=== PATIENT | male | born 1985 | race Caucasian/White ===

== ENCOUNTER 2017-10-14 01:56 | Observation (INO) ==
[2017-10-14] MEDS ORDERED: MORPHINE SULFATE 4 MG/1 ML IVP ONE (02:11)
[2017-10-14] MEDS ORDERED: NITROGLYCERIN 0.4 MG SL TAB (BOTTLE OF 3) SL ONE (02:11)
[2017-10-14] MEDS ORDERED: Sodium Chloride 0.9% 1,000 ML PRIMARY IV ONE ×3 (02:11→09:28)
[2017-10-14] MEDS ORDERED: ONDANSETRON 4 MG/2 ML VIAL IVP ONE (02:11)
[2017-10-14] MEDS ORDERED: ACETAMINOPHEN 500 MG TABLET PO ONE (02:11)
--- NOTE | 2017-10-14 02:13 | PDOC ---
Chest Pain HPI - General Chief Complaint: Chest Pain Stated Complaint: CHEST PAIN Date Seen by Provider: 10/14/17 Time Seen by Provider: 01:55 Source: Patient Exam Limitations: POSITIVE: No limitations Treatment Prior to Arrival: REPORTS: Aspirin Nurse's Notes Reviewed & Considered: Yes - History of Present Illness Initial Comments: This is a well-developed, well-nourished, very pleasant, 32-year-old male complaining of chest pain. Patient with chest pain that is substernal on the left side of his chest, with radiation into his left arm and shoulder. He describes the pain as sharp, deep, and with shortness of breath. Onset of pain was sudden at approximately 2100 hrs. tonight. At the time his pain had started , he was sitting on the edge of the bed, watching television. He had been watching television for approximately 3 hours when the symptoms started. Pain started as a mild annoyance and progressed into pain. 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 Presently has a headache, denies sore throat, he does have chest pain and shortness of breath, he has had chills but no sweats, no fever. He denies any nausea vomiting or diarrhea, but feels that he needs to have a bowel movement. He denies any hematuria or dysuria, no myalgias or arthralgias, no rashes. His gave him a 325 mg aspirin prior to coming to the emergency room. Patient denies tobacco, no drugs. He did have approximately 6 beers tonight. Body Location Affected: REPORTS: Head, Chest Timing: REPORTS: Abrupt Duration: 4-6 hours Severity: Moderate Context: REPORTS: Rest Quality: REPORTS: "Pain", Sharpness Radiation: REPORTS: Shoulder (L), Arm (L) Associated Symptoms: REPORTS: Shortness of Breath Modifying Factors: improves with: None Reported Similar Symptoms Previously: Yes Recently seen/treated/hospitalized: No Any Prior Injuries Related to Current Complaint?: No - Patient Home Medications Home Medications: Home Medications Albuterol Sulfate [Ventolin Hfa] 1 - 2 puff INH Q4-6H #1 inhaler 08/19/14 Bmx 2 tsp PO Q6-8H PRN #180 11/15/15 - Patient Allergies Allergies/Adverse Reactions: Allergies 3 Allergy/AdvReac Type Severity Reaction Status Date / Time No Known Allergies Allergy Unverified 08/16/14 10:31 Past Medical History - heen HEENT History: Denies History Cardiovascular History: Previous MT Additional Cardiovasular History: MT X 2 Respiratory History: Denies History Gastrointestinal History: Denies History Genitourinary History: Denies History Endocrine History: Denies History Musculoskeletal History: Back Injury, Joint Pain Additional Musculoskeletal History: Right fifth digit implant and surgical repair. Neurological History: Denies History Additional Neurological History: Hx of CVA x 1 Blood Disorders: Denies History Psychiatric History: Denies History History of Sexually Transmitted Diseases: No Cancer History: Denies History History of MDRO: No History of Other Communicable Diseases: No Alcohol Use: Occasionally In the Past 12 Months, Have Used or Abuse Any Substance: None Anesthesia Reactions: No Significant Family History: No pertinent family hx ROS - Limitations ROS Limitations: No Limitations Constitution: REPORTS: Chills Cardiovascular: REPORTS: Chest Pain Respiratory: REPORTS: Shortness Of Breath Neurological: REPORTS: Headache Gastrointestinal: REPORTS: Denies GI Symptoms Endocrine: REPORTS: Denies Symptoms Musculoskeletal: REPORTS: Denies MS Symptoms Genitourinary: REPORTS: Denies Symptoms Eyes: REPORTS: Denies Symptoms ENT: REPORTS: Denies Symptoms Skin: REPORTS: Denies Skin Symptoms Lympathic: REPORTS: Denies Lympathic Symptoms Immunologic: POSITIVE: Denies Symptoms Psychiatric: POSITIVE: Denies Psych Symptoms Chest Pain PE - General Appearance General Appearance: REPORTS: Alert, Cooperative, No Acute Distress, No Evidence of Trauma - HEENT HEENT: POSITIVE: Head Inspection Nml, Eyes Inspection Nml, Ears Inspection Nml, Nose Inspection Nml, Oral/Dental Inspect. Nml, Pharynx Inspect. Nml, PERRL, EOMI - Neck Neck: REPORTS: Normal Inspection - Respiratory Respiratory: REPORTS: No Respiratory Distress, Breath Sounds Normal, Chest Non- Tender - Cardiovascular Cardiovascular: REPORTS: Regular Rate and Rhythm, Heart Sounds Normal, Strong Pulses, No Murmur, No Gallop, No Friction Rub, No JVD Peripheral Pulses: Radial (R): 4+ - Abdomen Abdomen: Soft: (All Quadrants), Normal Bowel Sounds: (All Quadrants), Denies Tenderness: (All Quadrants), No Splenomegaly: (All Quadrants), No Hepatomegaly: (All Quadrants), No Guarding: (All Quadrants), No Rebound: (All Quadrants), No Palpable Pulse: (All Quadrants), No Palpabale Mass: (All Quadrants), No Distention: (All Quadrants), No Rigidity: (All Quadrants) - Extremities Extremity: Non-Tender: (All Extremities), Normal ROM: (All Extremities), Normal Inspection: (All Extremities) - Neurological / Psychological Neurological: POSITIVE: Affect Apporpriate, Oriented X3, Motor Normal, Sensation Normal Chest Pain Progress - Results Reviewed by me Xrays/CTs/US Reviewed by me: Yes Discussed with Radiologist: Yes Lab Results Reviewed by Me: Yes CBC and BMP: 10/14/17 02:00 10/14/17 02:00 EKG Interpreted/Reviewed By Me:: Yes (sinus rhythm with no ST elevation appreciated.) EKG Interpretation:: POSITIVE: Normal Sinus Rhythm, Normal ST/T - Patient's Progress Pain Medication Addressed: POSITIVE: Yes Status: POSITIVE: Improved MDM / ED Course: Patient was evaluated, an IV started, blood drawn and sent to lab for studies, EKG and radiographic examinations were obtained. Findings: Troponin and CK-MB are within normal limits. D-dimer is normal. EKG , as interpreted by me, shows normal sinus rhythm with no ST elevations present. Chest x-ray, as interpreted by me, shows no acute cardiopulmonary decompensation. CBC and CMP are unremarkable. Assessment: Chest pain with normal enzymes and EKG. In the setting of his past medical history angina is a likely explanation. Plan: Admission for rule out myocardial infarction. Patient received sublingual nitroglycerin which caused his chest pain to resolve. Quality Measure Initiative: CP/AMI: POSITIVE: EKG, ASA Quality Measure Initiative: CAP: POSITIVE: CXR or CT - Consult Consult (If Yes, Name of Consulting MD & Time Called): Yes (Dr. Fortune) Consulting MD will see pt:: POSITIVE: [facility] [place] Admit Counseled: POSITIVE: Patient, Family, RE: Lab Results, RE: Radiology Results, RE : DX, RE: Need for F/U Patient Care Time - Estimated PCT Patient Care Time (In Minutes): 45 Vital Signs - Recent Vital Signs Vital Signs: Vital Signs (Last 8 hours) Temp Pulse Pulse Pulse Pulse Resp BP 10/14/17 03:19 84 16 10/14/17 03:18 72 21 10/14/17 03:17 75 9 L 10/14/17 03:16 76 10 L 10/14/17 03:15 73 21 10/14/17 03:14 74 14 10/14/17 03:13 77 11 L 10/14/17 03:12 79 15 10/14/17 03:11 78 10 L 10/14/17 03:10 76 20 10/14/17 03:09 83 32 H 10/14/17 03:08 82 15 10/14/17 03:07 75 9 L 10/14/17 03:06 77 4 L 10/14/17 03:05 80 5 L 10/14/17 03:04 78 5 L 10/14/17 03:03 80 16 104/73 10/14/17 03:02 83 12 104/73 10/14/17 03:01 86 11 L 104/73 10/14/17 03:00 90 18 10/14/17 02:59 10 L 10/14/17 02:58 77 9 L 10/14/17 02:57 78 9 L 10/14/17 02:56 86 14 10/14/17 02:55 82 19 10/14/17 02:54 82 8 L 10/14/17 02:53 79 20 10/14/17 02:52 77 17 10/14/17 02:51 75 13 10/14/17 02:50 80 21 10/14/17 02:49 79 30 H 10/14/17 02:48 73 5 L 10/14/17 02:47 71 10 L 10/14/17 02:46 76 10 L 10/14/17 02:45 78 10 L 10/14/17 02:44 76 6 L 10/14/17 02:43 78 10 L 10/14/17 02:42 70 12 10/14/17 02:41 78 18 10/14/17 02:40 74 8 L 10/14/17 02:35 79 15 10/14/17 02:34 75 7 L 10/14/17 02:33 76 9 L 109/74 10/14/17 02:32 78 7 L 109/74 10/14/17 02:31 76 10 L 10/14/17 02:30 81 9 L 10/14/17 02:29 78 10 L 10/14/17 02:28 81 22 10/14/17 02:27 81 8 L 10/14/17 02:26 81 18 04/20/18 02:25 81 18 10/14/17 02:24 79 12 10/14/17 02:23 79 8 L 106/79 10/14/17 02:22 74 8 L 106/79 10/14/17 02:21 79 9 L 10/14/17 02:20 77 23 10/14/17 02:19 74 5 L 10/14/17 02:18 78 14 10/14/17 02:17 82 11 L 10/14/17 02:16 18 114/69 10/14/17 02:15 77 13 114/69 10/14/17 02:14 79 11 L 10/14/17 02:13 82 15 10/14/17 02:12 83 10 L 10/14/17 02:11 79 8 L 10/14/17 02:10 80 7 L 10/14/17 02:09 82 17 10/14/17 02:08 83 8 L 10/14/17 02:07 82 22 122/84 10/14/17 02:06 84 8 L 122/84 10/14/17 02:05 85 12 10/14/17 02:00 97.1 F 83 16 10/14/17 01:56 97.1 F 85 83 83 16 BP BP Pulse Ox 10/14/17 03:19 94 10/14/17 03:18 96 10/14/17 03:17 97 10/14/17 03:16 97 10/14/17 03:15 96 10/14/17 03:14 97 10/14/17 03:13 96 10/14/17 03:12 97 10/14/17 03:11 98 10/14/17 03:10 97 10/14/17 03:09 97 10/14/17 03:08 97 10/14/17 03:07 96 10/14/17 03:06 96 10/14/17 03:05 94 10/14/17 03:04 97 10/14/17 03:03 96 10/14/17 03:02 98 10/14/17 03:01 97 10/14/17 03:00 96 10/14/17 02:59 10/14/17 02:58 97 10/14/17 02:57 98 10/14/17 02:56 97 10/14/17 02:55 97 10/14/17 02:54 98 10/14/17 02:53 98 10/14/17 02:52 98 10/14/17 02:51 98 10/14/17 02:50 97 10/14/17 02:49 97 10/14/17 02:48 96 10/14/17 02:47 97 10/14/17 02:46 96 10/14/17 02:45 97 10/14/17 02:44 95 10/14/17 02:43 96 10/14/17 02:42 98 10/14/17 02:41 97 10/14/17 02:40 98 10/14/17 02:35 96 10/14/17 02:34 96 10/14/17 02:33 96 10/14/17 02:32 96 10/14/17 02:31 94 10/14/17 02:30 96 10/14/17 02:29 96 10/14/17 02:28 97 10/14/17 02:27 96 10/14/17 02:26 96 10/14/17 02:25 97 10/14/17 02:24 96 10/14/17 02:23 95 10/14/17 02:22 94 10/14/17 02:21 94 10/14/17 02:20 94 10/14/17 02:19 94 10/14/17 02:18 95 10/14/17 02:17 96 10/14/17 02:16 10/14/17 02:15 95 10/14/17 02:14 94 10/14/17 02:13 97 10/14/17 02:12 97 10/14/17 02:11 97 10/14/17 02:10 97 10/14/17 02:09 96 10/14/17 02:08 96 10/14/17 02:07 95 10/14/17 02:06 92 10/14/17 02:05 95 10/14/17 02:00 122/103 96 10/14/17 01:56 122/103 96 - VS Reviewed Vital Signs Reviewed: Yes Discharge Clinical Impression: Chest pain Discharge Disposition: Admit to Observation Condition: Stable Date Decision to Admit to Inpatient: 10/14/17 Time Decision to Admit to Inpatient: 03:00
[2017-10-14 02:15] LABS: BASOPHILS # (AUTO) 0.02 10*3/UL; BASOPHILS % (AUTO) 0.3 % (0-1); BLOOD UREA NITROGEN 9 mg/dL (7-22); BUN/CREATININE RATIO 8.18 (6-20); EOSINOPHILS # (AUTO) 0.11 10*3/UL; EOSINOPHILS % (AUTO) 1.4 % (0-8); Hematocrit [HCT] 45.8 % (42.0-52.0); Hemoglobin [HGB] 16.5 g/dL (14.0-18.0); LYMPHOCYTES # (AUTO) 3.19 10*3/uL; MEAN CORPUSCULAR HEMOGLOBIN 32.4 PG (27-31); MEAN CORPUSCULAR VOLUME 89.8 FL (80-90); MEAN PLATELET VOLUME 8.8 FL (7.4-12.2); MONOCYTES # (AUTO) 0.69 10*3/UL (0.3-0.8); MONOCYTES % (AUTO) 8.8 % (5-15); NEUTROPHILS # (AUTO) 3.84 10*3/UL; NEUTROPHILS % (AUTO) 48.6 % (50-80); PLATELET MORPHOLOGY COMMENT NORMAL MORPHOLOGY (NORM); RBC MORPHOLOGY COMMENT NORMAL MORPHOLOGY (NORM); SERUM ALBUMIN 4.7 g/dL (3.5-4.8); WBC MORPHOLOGY COMMENT NORMAL MORPHOLOGY (NORM)
--- NOTE | 2017-10-14 03:07 | EKG ---
[address] [address] Measurements Intervals [place] Rate: 85 P: 24 ID: [id number] QRS: 90 QRSD: 89 T: 27 QT: 333 QTc: 376 Interpretive Statements SINUS RHYTHM EARLY REPOLARIZATION [ST ELEVATION WITH NORMALLY INFLECTED T WAVE] INTERPRETATION BASED ON A DEFAULT AGE OF 40 YEARS No previous ECG available for comparison Electronically Signed On 10-14-17 08:57:40 MDT by Sincere Reynolds MD [email or web address]
[2017-10-14] MEDS ORDERED: ACETAMINOPHEN 325 MG TABLET PO PRN (03:25)
[2017-10-14] MEDS ORDERED: ONDANSETRON 4 MG/2 ML VIAL IVP PRN (03:25)
[2017-10-14] MEDS ORDERED: NITROGLYCERIN 0.4 MG SL TAB (BOTTLE OF 3) SL PRN (03:25)
[2017-10-14] MEDS ORDERED: CALCIUM CARBONATE 500 MG (TUMS) CHEWABLE TABLET PO PRN (03:25)
[2017-10-14] MEDS ORDERED: NORMAL SALINE 10 ML SYRINGE FLUSH IVP PRN (03:25)
[2017-10-14] MEDS ORDERED: DOCUSATE 100 MG CAPSULE PO PRN (03:25)
[2017-10-14] MEDS ORDERED: LIDOCAINE W/ SODIUM BICARB 0.5 ML SYR SUBD PRN (03:25)
[2017-10-14 04:23] LABS: CHOL/HDL RATIO 6.2 RATIO (0-4.0)
[2017-10-14] MEDS ORDERED: Pantoprazole Inj 40 MG in Normal Saline Flush 10 ML IVP SCH (07:00)
[2017-10-14 10:26] LABS: AMPHETAMINE SCREEN NEGATIVE (NEG); CANNABINOID SCREEN,URINE NEGATIVE (NEG); COCAINE SCREEN NEGATIVE (NEG); METHADONE URINE SCREEN NEGATIVE (NEG); METHAMPHETAMINES SCREEN,URINE NEGATIVE (NEG); OPIATE SCREEN,URINE NEGATIVE (NEG); URINE SAMPLE TYPE CLEAN CATCH URINE; URINE SPECIFIC GRAVITY - MAN 1.003
--- NOTE | 2017-10-14 11:51 | DI ---
XR CXR 1VW,10/14/2017 2:11 AM: Clinical History: Chest pain Previous Exam: None at this facility. Findings: A single frontal radiograph of the chest is obtained, and demonstrate clear lungs. The cardiomediasti num and bony thorax are unremarkable. Overlying EKG leads are seen. Impression: Normal chest.
--- NOTE | 2017-10-14 12:24 | STRESSTEST ---
[facility] Interpretive Statements This is a 32 YO with chest pain, resolved. Does not smoke, no blood pressure problems, has high cholesterol, no DMII. Ruled out for RI. Exercised using santos protocol treadmill stress test. No abnormal morphologies. no murmurs on exam. Had hypertensive response to exercise. Impression: negative maximal stress with hypertensive response to exercise. METs 11.3, double product 28,482., Plan: exercise prescription. [id number]
[2017-10-14 12:38] VITALS: BP 144/76; RESP 18; TEMP 97.5; O2SAT 93
--- NOTE | 2017-10-14 13:55 | PDOC ---
HPI - History of Present Illness Date of Service: 10/14/17 Time of Service: 11:00 Chief Complaint: Chest pain History of Present Illness: This very pleasant 32-year-old male who presented early this morning around 4 AM to the emergency room with complaints of chest pain that started around 9:30 or so. He states that he was getting ready for bed and sat on the edge of his bed and he felt a little uneasy. He noticed pain in the lateral side of his chest radiating into his left arm. He's never had pain radiate into his left arm. He stated to the emergency room physician and to me that he had a prior heart attack taking care of in [place], but he never saw a gold wheel blocker and polisher and he has not been on any beta katie or aspirin therapy since that time. He does not smoke. He does not have diabetes. He does have high cholesterol. He has a family history of heart disease. He does not have high blood pressure. The patient states that his pain resolved very quickly and nitroglycerin seemed to help it. He notes that he has never had a stress test. His fiance is actually a nurse and was present for some of this discussion as well. The patient did not have any diaphoresis, nausea, or vomiting at the time of the chest pain. We discussed options for stress testing and feel that that may be the best thing to do. The patient was incidentally found to have a high thyroid stimulating hormone, but the free T4 level was normal. I will note also that the patient is on testosterone replacement. Past Medical History Medical History: 1. Testosterone deficiency. 2. Prior history of back surgeries with chronic back pain Surgical History: 1. Apparently 7 back surgeries. 2. Tonsillectomy Pertinent Family History: Significant for heart disease and hypertension. Past Social History: Does not smoke. Drinks occasionally. Has a fiance has children that are described as healthy. 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 Tobacco Use: Never Smoker Do you dip or chew tobacco: Yes (1 CAN ADAY) In the Past 12 Months, Have Used or Abuse Any of the Following Substance: None Alcohol Use: Occasionally Medication / Allergies Home Medications: Home Medications 3 Medication Instructions Recorded Confirmed Type Albuterol Sulfate [Ventolin Hfa] 1 - 2 puff INH Q4-6H #1 inhaler 08/19/14 History Bmx 2 tsp PO Q6-8H PRN #180 11/15/15 Clinic Allergies/Adverse Reactions: Allergies 3 Allergy/AdvReac Type Severity Reaction Status Date / Time No Known Allergies Allergy Unverified 08/16/14 10:31 Review of Systems - Review of Systems All Systems: Reviewed & No Additional Complaints Except as Stated (112 point review of systems and it was negative other than that discussed in history present illness and that noted below.) - Cardiovascular Cardiovascular: REPORTS: Other (Had history of a heart murmur.) - Musculoskeletal Musculoskeletal: REPORTS: Other (Chronic muscular skull to pain, mostly back pain.) Exam - Vitals Vital Signs: Vital Signs Temperature 97.5 F Temperature Source Temporal Artery Scan Pulse Rate [Telemetry] 62 Pulse Rate [Pulse Oximeter 96 Left] Pulse Rate [Right Radial] 83 Pulse Rate 63 Respiratory Rate 18 Blood Pressure [LT ARM] 121/65 Blood Pressure [Right Arm] 144/76 Pulse Ox 93 Oxygen Delivery Method Room Air Height 6 ft 1 in Weight 262 lb 4 oz - General General Appearance: No Acute Distress, Cooperative - Head Head Exam: Normal Inspection, Normocephalic, Atraumatic - Eye Eye Exam: POSITIVE: No Scleral Icterus - ENT ENT Exam: POSITIVE: Mucous Membranes Moist - Neck Neck Exam: Normal Inspection, No Tenderness, No Lymphadenopathy, No Thyromegaly , JVP is not Raised - Respiratory Respiratory Exam: POSITIVE: Clear to Auscultation - Bilaterally, Breathing Non Labored, Normal to Percussion and Palpation - Cardiovascular Cardiovascular Exam: POSITIVE: RRR, No Murmur, No Clicks, No Gallops, No Rubs, No JVD - GI/Abdominal GI/Abdominal Exam: POSITIVE: Normal Bowel Sounds, Non Tender, Non Distended, Soft - Rectal Rectal Exam: POSITIVE: Deferred - External Exam: POSITIVE: Deferred Exam: POSITIVE: Deferred - Extremities Extremities Exam: POSITIVE: No Clubbing Present, No Edema Present, No Cyanosis Present - Back Back Exam: POSITIVE: Normal Inspection, No CVA Tenderness - Neurological Neurological Exam: POSITIVE: Alert, Oriented x 3, No Facial Droop, Speech Intact / Clear, Moves All Extremities Equally - Psychiatric Psychiatric Exam: POSITIVE: Normal Affect, Normal Mood Results - Labs CBC and BMP: 10/14/17 02:00 10/14/17 02:00 Additional Lab Results: Laboratory Results 04/20/18 04/20/18 04/20/18 Range/Units 02:00 02:00 02:00 WBC 7.88 (4.8-10.8) 10^3/uL RBC 5.10 (4.70-6.10) 10^6/uL Hgb 16.5 (14.0-18.0) g/dL Hct 45.8 (42.0-52.0) % MCV 89.8 (80-90) FL MCH 32.4 H (27-31) PG MCHC 36.0 (33-37) g/dL RDW Std Deviation 42.5 (39-50) fL RDW Coeff of Mya 13.1 (11.5-14.5) % Plt Count 254 (140-350) 10*3/uL MPV 8.8 (7.4-12.2) FL Immature Gran % (Auto) 0.4 (0-5) % Neut % (Auto) 48.6 L (50-80) % Lymph % (Auto) 40.5 (10-50) % Carbon % (Auto) 8.8 (5-15) % Eos % (Auto) 1.4 (0-8) % Baso % (Auto) 0.3 (0-1) % Immature Gran # (Auto) 0.03 10*3/UL Neut # (Auto) 3.84 10*3/UL Lymph # (Auto) 3.19 10*3/uL Carbon # (Auto) 0.69 (0.3-0.8) 10*3/UL Eos # (Auto) 0.11 10*3/UL Baso # (Auto) 0.02 10*3/UL WBC Morphology Comment Normal morphology (NORM) Plt Morphology Comment Normal morphology (NORM) RBC Morph Comment Normal morphology (NORM) D-Dimer < 0.19 (0.00-0.59) mg/L Sodium 140 (135-145) meq/L Potassium 3.8 (3.8-5.2) meq/L Chloride 99 (98-112) meq/L Carbon Dioxide 22 L (23-33) meq/L Anion Gap 19 (5-20) BUN 9 (7-22) mg/dL Creatinine 1.1 (0.70-1.50) mg/dL Estimated GFR > 60 (>60 ml/min/1.73m(2)) BUN/Creatinine Ratio 8.18 (6-20) Glucose 98 (78-110) mg/dL Calculated Osmolality 288.0 (267-292) mOsm/kg Calcium 9.1 (8.7-10.7) mg/dL Magnesium 2.4 (1.6-2.4) mg/dL Total Bilirubin 0.5 (0.3-1.2) mg/dL AST 31 (21-57) IU/L ALT 50 (21-72) IU/L Alkaline Phosphatase 62 (38-126) IU/L CK-MB (CK-2) (0.00-5.00) NG/ML Troponin I (< 0.040) ng/mL C-Reactive Protein 1.3 H (0.0-0.9) mg/dL Total Protein 7.9 (6.1-8.0) g/dL Albumin 4.7 (3.5-4.8) g/dL Globulin 3.2 (2.50-4.10) g/dL Albumin/Globulin Ratio 1.40 (1.3-2.0) mg/g Triglycerides (44-200) mg/dL Cholesterol (120-200) mg/dL LDL Cholesterol, Calc mg/dL VLDL Cholesterol (0-40) mg/dL HDL Cholesterol (40-150) mg/dL Cholesterol/HDL Ratio (0-4.0) RATIO TSH (0.2700-4.2000) uIU/mL Free T4 (0.93-1.71) ng/dL Ur Collection Type U Specif Grav (Refrac) Urine Opiates Screen (NEG) Ur Buprenorphine (NEG) Ur Oxycodone Screen (NEG) Urine Methadone Screen (NEG) Ur Propoxyphene Screen (NEG) Barbiturate Screen (NEG) U Tricyclic Antidepress (NEG) Phencyclidine Screen (NEG) Amphetamines Screen (NEG) U Methamphetamines Scrn (NEG) Benzodiazepines Screen (NEG) Cocaine Screen (NEG) U Marijuana (THC) Screen (NEG) 10/14/17 10/14/17 10/14/17 Range/Units 02:00 02:00 02:00 WBC (4.8-10.8) 10^3/uL RBC (4.70-6.10) 10^6/uL Hgb (14.0-18.0) g/dL Hct (42.0-52.0) % MCV (80-90) FL MCH (27-31) PG MCHC (33-37) g/dL RDW Std Deviation (39-50) fL RDW Coeff of Mya (11.5-14.5) % Plt Count (140-350) 10*3/uL MPV (7.4-12.2) FL Immature Gran % (Auto) (0-5) % Neut % (Auto) (50-80) % Lymph % (Auto) (10-50) % Carbon % (Auto) (5-15) % Eos % (Auto) (0-8) % Baso % (Auto) (0-1) % Immature Gran # (Auto) 10*3/UL Neut # (Auto) 10*3/UL Lymph # (Auto) 10*3/uL Carbon # (Auto) (0.3-0.8) 10*3/UL Eos # (Auto) 10*3/UL Baso # (Auto) 10*3/UL WBC Morphology Comment (NORM) Plt Morphology Comment (NORM) RBC Morph Comment (NORM) D-Dimer (0.00-0.59) mg/L Sodium (135-145) meq/L Potassium (3.8-5.2) meq/L Chloride (98-112) meq/L Carbon Dioxide (23-33) meq/L Anion Gap (5-20) BUN (7-22) mg/dL Creatinine (0.70-1.50) mg/dL Estimated GFR (>60 ml/min/1.73m(2)) BUN/Creatinine Ratio (6-20) Glucose (78-110) mg/dL Calculated Osmolality (267-292) mOsm/kg Calcium (8.7-10.7) mg/dL Magnesium (1.6-2.4) mg/dL Total Bilirubin (0.3-1.2) mg/dL AST (21-57) IU/L ALT (21-72) IU/L Alkaline Phosphatase (38-126) IU/L CK-MB (CK-2) 0.83 (0.00-5.00) NG/ML Troponin I < 0.012 (< 0.040) ng/mL C-Reactive Protein (0.0-0.9) mg/dL Total Protein (6.1-8.0) g/dL Albumin (3.5-4.8) g/dL Globulin (2.50-4.10) g/dL Albumin/Globulin Ratio (1.3-2.0) mg/g Triglycerides (44-200) mg/dL Cholesterol (120-200) mg/dL LDL Cholesterol, Calc mg/dL VLDL Cholesterol (0-40) mg/dL HDL Cholesterol (40-150) mg/dL Cholesterol/HDL Ratio (0-4.0) RATIO TSH 5.50 H (0.2700-4.2000) uIU/mL Free T4 1.09 (0.93-1.71) ng/dL Ur Collection Type Clean catch urine U Specif Grav (Refrac) 1.003 Urine Opiates Screen Negative (NEG) Ur Buprenorphine Negative (NEG) Ur Oxycodone Screen Negative (NEG) Urine Methadone Screen Negative (NEG) Ur Propoxyphene Screen Negative (NEG) Barbiturate Screen Negative (NEG) U Tricyclic Antidepress Negative (NEG) Phencyclidine Screen Negative (NEG) Amphetamines Screen Negative (NEG) U Methamphetamines Scrn Negative (NEG) Benzodiazepines Screen Negative (NEG) Cocaine Screen Negative (NEG) U Marijuana (THC) Screen Negative (NEG) 10/14/17 10/14/17 10/14/17 Range/Units 04:12 04:12 09:30 WBC (4.8-10.8) 10^3/uL RBC (4.70-6.10) 10^6/uL Hgb (14.0-18.0) g/dL Hct (42.0-52.0) % MCV (80-90) FL MCH (27-31) PG MCHC (33-37) g/dL RDW Std Deviation (39-50) fL RDW Coeff of Mya (11.5-14.5) % Plt Count (140-350) 10*3/uL MPV (7.4-12.2) FL Immature Gran % (Auto) (0-5) % Neut % (Auto) (50-80) % Lymph % (Auto) (10-50) % Carbon % (Auto) (5-15) % Eos % (Auto) (0-8) % Baso % (Auto) (0-1) % Immature Gran # (Auto) 10*3/UL Neut # (Auto) 10*3/UL Lymph # (Auto) 10*3/uL Carbon # (Auto) (0.3-0.8) 10*3/UL Eos # (Auto) 10*3/UL Baso # (Auto) 10*3/UL WBC Morphology Comment (NORM) Plt Morphology Comment (NORM) RBC Morph Comment (NORM) D-Dimer (0.00-0.59) mg/L Sodium (135-145) meq/L Potassium (3.8-5.2) meq/L Chloride (98-112) meq/L Carbon Dioxide (23-33) meq/L Anion Gap (5-20) BUN (7-22) mg/dL Creatinine (0.70-1.50) mg/dL Estimated GFR (>60 ml/min/1.73m(2)) BUN/Creatinine Ratio (6-20) Glucose (78-110) mg/dL Calculated Osmolality (267-292) mOsm/kg Calcium (8.7-10.7) mg/dL Magnesium (1.6-2.4) mg/dL Total Bilirubin (0.3-1.2) mg/dL AST (21-57) IU/L ALT (21-72) IU/L Alkaline Phosphatase (38-126) IU/L CK-MB (CK-2) (0.00-5.00) NG/ML Troponin I < 0.012 < 0.012 (< 0.040) ng/mL C-Reactive Protein (0.0-0.9) mg/dL Total Protein (6.1-8.0) g/dL Albumin (3.5-4.8) g/dL Globulin (2.50-4.10) g/dL Albumin/Globulin Ratio (1.3-2.0) mg/g Triglycerides 356 H (44-200) mg/dL Cholesterol 155 (120-200) mg/dL LDL Cholesterol, Calc 58.800 mg/dL VLDL Cholesterol 71 H (0-40) mg/dL HDL Cholesterol 25 L (40-150) mg/dL Cholesterol/HDL Ratio 6.20 H (0-4.0) RATIO TSH (0.2700-4.2000) uIU/mL Free T4 (0.93-1.71) ng/dL Ur Collection Type U Specif Grav (Refrac) Urine Opiates Screen (NEG) Ur Buprenorphine (NEG) Ur Oxycodone Screen (NEG) Urine Methadone Screen (NEG) Ur Propoxyphene Screen (NEG) Barbiturate Screen (NEG) U Tricyclic Antidepress (NEG) Phencyclidine Screen (NEG) Amphetamines Screen (NEG) U Methamphetamines Scrn (NEG) Benzodiazepines Screen (NEG) Cocaine Screen (NEG) U Marijuana (THC) Screen (NEG) - EKG Data -: EKG Interpreted by Me Rate: Normal EKG Shows Normal: Sinus Rhythm - Imaging Status: Image Reviewed by Me (Chest x-ray is negative for any acute cardiopulmonary disease process on my review.) Assessment and Plan - Patient Problems (1) Chest pain Current Visit: Yes Status: Acute Code(s): R07.9 - Chest pain, unspecified (2) Hypertriglyceridemia Current Visit: Yes Status: Acute Code(s): E78.1 - Pure hyperglyceridemia (3) Testosterone deficiency Current Visit: Yes Status: Acute Code(s): E34.9 - Endocrine disorder, unspecified - Assessment / Plan Additional Assessment/Plan Details: Admitted the patient for same day admission and discharge. We trended troponins and they ruled out for myocardial infarction. Stress test, and this was done as a treadmill stress test, separate and unique of this evaluation. See results of that test separately. Diet interventions for cholesterol occluding increased vegetable intake. Recheck in 6 months Recheck the thyroid function in 6 months. I gave the patient options of looking at thyroid antibodies were repeating TSH and free T4 and that the Route he would like to go. Patient is agreeable to the plan above. History bruna, nurse, also agreed with the plan. If any further chest pain develops, I would suggest cardiac evaluation.
--- NOTE | 2017-10-14 14:10 | DCSUMMARY ---
Hospitalization Summary Admit Date: 10/14/2017 Discharge Date: 10/14/17 Primary Diagnosis:: chest pain, resolved, unclear etiology Secondary Diagnosis:: Subclinical hypothyroidism, testosterone deficiency, hypertriglyceridemia Hospital Course: This very pleasant 32-year-old male that presented with chest pain of unclear etiology of his lateral and radiated to the left arm. He was admitted for rule out of myocardial infarction which was done as his cardiac enzymes were negative. We recommended a treadmill stress test which we did and it was also negative. He had a negative maximal stress test with hypertensive response to exercise. We talked about changing diet and modifying the lifestyle modifications for 6 months to see if he get the cholesterol under control. I will have the patient do a lipid panel and a TSH and free T4 in 6 months. Physical symptoms are resolved, stress test negative, I think the patient is okay to go home. I spoke with the patient and his fiance, nurse, about the plan. They both agreed. Assessment and Plan: 1. As per discharge assessments noted 2. Disposition: Patient is discharged home. 3. Condition on discharge, stable and improved. 4. Diet: regular diet but increase vegetable intake 5. Activities: resume normal activities 6. Follow-Up: 1. See primary provider in one week 2. 7. Medications at the Time of Discharge: Home Medications 3 Medication Instructions Recorded Confirmed Type Albuterol Sulfate [Ventolin Hfa] 1 - 2 puff INH Q4-6H #1 inhaler 08/19/14 History Bmx 2 tsp PO Q6-8H PRN #180 11/15/15 Clinic Continue testosterone replacement as per his provider. Please note I did discuss cardiac and stroke risks and increased risk of prostate cancer with this medication. His had significant improvement in his libido, erectile dysfunction, mood, and sleep on the medication however. Same day admission and discharge. Exam - Vitals Vital Signs: Vital Signs Temperature 97.5 F Temperature Source Temporal Artery Scan Pulse Rate [Telemetry] 62 Pulse Rate [Pulse Oximeter 96 Left] Pulse Rate [Right Radial] 83 Pulse Rate 63 Respiratory Rate 18 Blood Pressure [LT ARM] 121/65 Blood Pressure [Right Arm] 144/76 Pulse Ox 93 Oxygen Delivery Method Room Air Height 6 ft 1 in Weight 262 lb 4 oz - General General Appearance: No Acute Distress, Cooperative - Head Head Exam: Normal Inspection, Normocephalic, Atraumatic - Eye Eye Exam: POSITIVE: No Scleral Icterus - Respiratory Respiratory Exam: POSITIVE: Clear to Auscultation - Bilaterally, Breathing Non Labored - Cardiovascular Cardiovascular Exam: POSITIVE: RRR, No Murmur, No Clicks, No Gallops, No Rubs, No JVD - GI/Abdominal GI/Abdominal Exam: POSITIVE: Normal Bowel Sounds, Non Tender, Non Distended, Soft - Extremities Extremities Exam: POSITIVE: No Clubbing Present, No Edema Present, No Cyanosis Present - Neurological Neurological Exam: POSITIVE: Alert, Oriented x 3, Normal Gait, No Facial Droop, Speech Intact / Clear, Moves All Extremities Equally Data Peritnent Studies: Laboratory Results 10/14/17 10/14/17 10/14/17 Range/Units 02:00 02:00 02:00 WBC 7.88 (4.8-10.8) 10^3/uL RBC 5.10 (4.70-6.10) 10^6/uL Hgb 16.5 (14.0-18.0) g/dL Hct 45.8 (42.0-52.0) % MCV 89.8 (80-90) FL MCH 32.4 H (27-31) PG MCHC 36.0 (33-37) g/dL RDW Std Deviation 42.5 (39-50) fL RDW Coeff of Mya 13.1 (11.5-14.5) % Plt Count 254 (140-350) 10*3/uL MPV 8.8 (7.4-12.2) FL Immature Gran % (Auto) 0.4 (0-5) % Neut % (Auto) 48.6 L (50-80) % Lymph % (Auto) 40.5 (10-50) % [place] % (Auto) 8.8 (5-15) % Eos % (Auto) 1.4 (0-8) % Baso % (Auto) 0.3 (0-1) % Immature Gran # (Auto) 0.03 10*3/UL Neut # (Auto) 3.84 10*3/UL Lymph # (Auto) 3.19 10*3/uL [place] # (Auto) 0.69 (0.3-0.8) 10*3/UL Eos # (Auto) 0.11 10*3/UL Baso # (Auto) 0.02 10*3/UL WBC Morphology Comment Normal morphology (NORM) Plt Morphology Comment Normal morphology (NORM) RBC Morph Comment Normal morphology (NORM) D-Dimer < 0.19 (0.00-0.59) mg/L Sodium 140 (135-145) meq/L Potassium 3.8 (3.8-5.2) meq/L Chloride 99 (98-112) meq/L Carbon Dioxide 22 L (23-33) meq/L Anion Gap 19 (5-20) BUN 9 (7-22) mg/dL Creatinine 1.1 (0.70-1.50) mg/dL Estimated GFR > 60 (>60 ml/min/1.73m(2)) BUN/Creatinine Ratio 8.18 (6-20) Glucose 98 (78-110) mg/dL Calculated Osmolality 288.0 (267-292) mOsm/kg Calcium 9.1 (8.7-10.7) mg/dL Magnesium 2.4 (1.6-2.4) mg/dL Total Bilirubin 0.5 (0.3-1.2) mg/dL AST 31 (21-57) IU/L ALT 50 (21-72) IU/L Alkaline Phosphatase 62 (38-126) IU/L CK-MB (CK-2) (0.00-5.00) NG/ML Troponin I (< 0.040) ng/mL C-Reactive Protein 1.3 H (0.0-0.9) mg/dL Total Protein 7.9 (6.1-8.0) g/dL Albumin 4.7 (3.5-4.8) g/dL Globulin 3.2 (2.50-4.10) g/dL Albumin/Globulin Ratio 1.40 (1.3-2.0) mg/g Triglycerides (44-200) mg/dL Cholesterol (120-200) mg/dL LDL Cholesterol, Calc mg/dL VLDL Cholesterol (0-40) mg/dL HDL Cholesterol (40-150) mg/dL Cholesterol/HDL Ratio (0-4.0) RATIO TSH (0.2700-4.2000) uIU/mL Free T4 (0.93-1.71) ng/dL Ur Collection Type U Specif Grav (Refrac) Urine Opiates Screen (NEG) Ur Buprenorphine (NEG) Ur Oxycodone Screen (NEG) Urine Methadone Screen (NEG) Ur Propoxyphene Screen (NEG) Barbiturate Screen (NEG) U Tricyclic Antidepress (NEG) Phencyclidine Screen (NEG) Amphetamines Screen (NEG) U Methamphetamines Scrn (NEG) Benzodiazepines Screen (NEG) Cocaine Screen (NEG) U Marijuana (THC) Screen (NEG) 10/14/17 10/14/17 10/14/17 Range/Units 02:00 02:00 02:00 WBC (4.8-10.8) 10^3/uL RBC (4.70-6.10) 10^6/uL Hgb (14.0-18.0) g/dL Hct (42.0-52.0) % MCV (80-90) FL MCH (27-31) PG MCHC (33-37) g/dL RDW Std Deviation (39-50) fL RDW Coeff of Mya (11.5-14.5) % Plt Count (140-350) 10*3/uL MPV (7.4-12.2) FL Immature Gran % (Auto) (0-5) % Neut % (Auto) (50-80) % Lymph % (Auto) (10-50) % [place] % (Auto) (5-15) % Eos % (Auto) (0-8) % Baso % (Auto) (0-1) % Immature Gran # (Auto) 10*3/UL Neut # (Auto) 10*3/UL Lymph # (Auto) 10*3/uL [place] # (Auto) (0.3-0.8) 10*3/UL Eos # (Auto) 10*3/UL Baso # (Auto) 10*3/UL WBC Morphology Comment (NORM) Plt Morphology Comment (NORM) RBC Morph Comment (NORM) D-Dimer (0.00-0.59) mg/L Sodium (135-145) meq/L Potassium (3.8-5.2) meq/L Chloride (98-112) meq/L Carbon Dioxide (23-33) meq/L Anion Gap (5-20) BUN (7-22) mg/dL Creatinine (0.70-1.50) mg/dL Estimated GFR (>60 ml/min/1.73m(2)) BUN/Creatinine Ratio (6-20) Glucose (78-110) mg/dL Calculated Osmolality (267-292) mOsm/kg Calcium (8.7-10.7) mg/dL Magnesium (1.6-2.4) mg/dL Total Bilirubin (0.3-1.2) mg/dL AST (21-57) IU/L ALT (21-72) IU/L Alkaline Phosphatase (38-126) IU/L CK-MB (CK-2) 0.83 (0.00-5.00) NG/ML Troponin I < 0.012 (< 0.040) ng/mL C-Reactive Protein (0.0-0.9) mg/dL Total Protein (6.1-8.0) g/dL Albumin (3.5-4.8) g/dL Globulin (2.50-4.10) g/dL Albumin/Globulin Ratio (1.3-2.0) mg/g Triglycerides (44-200) mg/dL Cholesterol (120-200) mg/dL LDL Cholesterol, Calc mg/dL VLDL Cholesterol (0-40) mg/dL HDL Cholesterol (40-150) mg/dL Cholesterol/HDL Ratio (0-4.0) RATIO TSH 5.50 H (0.2700-4.2000) uIU/mL Free T4 1.09 (0.93-1.71) ng/dL Ur Collection Type Clean catch urine U Specif Grav (Refrac) 1.003 Urine Opiates Screen Negative (NEG) Ur Buprenorphine Negative (NEG) Ur Oxycodone Screen Negative (NEG) Urine Methadone Screen Negative (NEG) Ur Propoxyphene Screen Negative (NEG) Barbiturate Screen Negative (NEG) U Tricyclic Antidepress Negative (NEG) Phencyclidine Screen Negative (NEG) Amphetamines Screen Negative (NEG) U Methamphetamines Scrn Negative (NEG) Benzodiazepines Screen Negative (NEG) Cocaine Screen Negative (NEG) U Marijuana (THC) Screen Negative (NEG) 10/14/17 10/14/17 10/14/17 Range/Units 04:12 04:12 09:30 WBC (4.8-10.8) 10^3/uL RBC (4.70-6.10) 10^6/uL Hgb (14.0-18.0) g/dL Hct (42.0-52.0) % MCV (80-90) FL MCH (27-31) PG MCHC (33-37) g/dL RDW Std Deviation (39-50) fL RDW Coeff of Mya (11.5-14.5) % Plt Count (140-350) 10*3/uL MPV (7.4-12.2) FL Immature Gran % (Auto) (0-5) % Neut % (Auto) (50-80) % Lymph % (Auto) (10-50) % [place] % (Auto) (5-15) % Eos % (Auto) (0-8) % Baso % (Auto) (0-1) % Immature Gran # (Auto) 10*3/UL Neut # (Auto) 10*3/UL Lymph # (Auto) 10*3/uL [place] # (Auto) (0.3-0.8) 10*3/UL Eos # (Auto) 10*3/UL Baso # (Auto) 10*3/UL WBC Morphology Comment (NORM) Plt Morphology Comment (NORM) RBC Morph Comment (NORM) D-Dimer (0.00-0.59) mg/L Sodium (135-145) meq/L Potassium (3.8-5.2) meq/L Chloride (98-112) meq/L Carbon Dioxide (23-33) meq/L Anion Gap (5-20) BUN (7-22) mg/dL Creatinine (0.70-1.50) mg/dL Estimated GFR (>60 ml/min/1.73m(2)) BUN/Creatinine Ratio (6-20) Glucose (78-110) mg/dL Calculated Osmolality (267-292) mOsm/kg Calcium (8.7-10.7) mg/dL Magnesium (1.6-2.4) mg/dL Total Bilirubin (0.3-1.2) mg/dL AST (21-57) IU/L ALT (21-72) IU/L Alkaline Phosphatase (38-126) IU/L CK-MB (CK-2) (0.00-5.00) NG/ML Troponin I < 0.012 < 0.012 (< 0.040) ng/mL C-Reactive Protein (0.0-0.9) mg/dL Total Protein (6.1-8.0) g/dL Albumin (3.5-4.8) g/dL Globulin (2.50-4.10) g/dL Albumin/Globulin Ratio (1.3-2.0) mg/g Triglycerides 356 H (44-200) mg/dL Cholesterol 155 (120-200) mg/dL LDL Cholesterol, Calc 58.800 mg/dL VLDL Cholesterol 71 H (0-40) mg/dL HDL Cholesterol 25 L (40-150) mg/dL Cholesterol/HDL Ratio 6.20 H (0-4.0) RATIO TSH (0.2700-4.2000) uIU/mL Free T4 (0.93-1.71) ng/dL Ur Collection Type U Specif Grav (Refrac) Urine Opiates Screen (NEG) Ur Buprenorphine (NEG) Ur Oxycodone Screen (NEG) Urine Methadone Screen (NEG) Ur Propoxyphene Screen (NEG) Barbiturate Screen (NEG) U Tricyclic Antidepress (NEG) Phencyclidine Screen (NEG) Amphetamines Screen (NEG) U Methamphetamines Scrn (NEG) Benzodiazepines Screen (NEG) Cocaine Screen (NEG) U Marijuana (THC) Screen (NEG) Procedures: Kwaku protocol exercise treadmill stress test, negative study. Patient Problems - Patient Problem List (1) Chest pain Current Visit: Yes Status: Resolved Code(s): R07.9 - Chest pain, unspecified Category: Medical (2) Hypertriglyceridemia Current Visit: Yes Status: Acute Code(s): E78.1 - Pure hyperglyceridemia Category: Medical (3) Testosterone deficiency Current Visit: Yes Status: Acute Code(s): E34.9 - Endocrine disorder, unspecified Category: Medical
== END 2017-10-14 14:54 | disposition home or self-care (01) ==
LOC: MED/SURG 01:56 → ER 01:56 → MED/SURG 03:20
PROVIDERS: ADMIT Family Medicine; ATTEND Family Medicine